=== PATIENT | female | born 1950 | race Caucasian/White ===

== ENCOUNTER 2019-04-15 15:28 | Emergency (ER) | payer MEDICARE, MEDICAID | END 2019-04-15 16:01 | disposition left against medical advice (07) | LOC: ER 15:28 | DX: M25.511 Pain in right shoulder (principal); Z53.21 Procedure and treatment not carried out due to patient leaving prior to being seen by health care provider ==

== ENCOUNTER → 2023-12-01 | Outpatient (CLI) | payer OTHER | END | disposition home or self-care (01) | LOC: Rad HDHVI 15:18 | PROVIDERS: ATTEND Internal Medicine Cardiovascular Disease | DX: I10 Essential (primary) hypertension (principal) | CPT/HCPCS: 93306 ==